=== PATIENT | female | born 1960 | race Asian ===

== ENCOUNTER 2018-03-30 09:09 | Inpatient (IN) | payer MEDICAID, OTHER ==
[~2018-03-30] VITALS: Ht 157.5 cm; Wt 750.2 kg
[2018-03-30 09:20] VITALS: BP 151/79
--- NOTE | 2018-03-30 09:25 | NUR ---
PT AMBULATES TO BED 6
--- NOTE | 2018-03-30 09:25 | NUR ---
informed er fower about patient status. no verbal order for antipyretic d/t patient actively vomitting.
--- NOTE | 2018-03-30 09:26 | NUR ---
58/F BIB SELF with c/o epigastric pain with n/v x since 0800 this am. Patient reports of vomitting 2 episodes but denies any diarrhea. RASHES L UPPER CHEST. AAOX4 WITH EVEN AND STEADY GAIT; LUNGS CLEAR BL; PT DENIES ANY SOB, OR COUGH AT THIS TIME; PATIENT STATES PAIN OF 10/10 AT THIS TIME. PATIENT POSITIONED FOR COMFORT; HOB ELEVATED; BEDRAILS UP X2; BED DOWN. ER MD MADE AWARE OF PT STATUS.
[2018-03-30] MEDS ORDERED: ACETAMINOPHEN EXTRA STRENGTH 500 MG TAB ONE (09:32)
[2018-03-30] MEDS ORDERED: NACL 0.9% 1,000 ML IV ONE (09:36)
[2018-03-30] MEDS ORDERED: NACL 0.9% 2,000 ML IV SCH (09:36)
--- NOTE | 2018-03-30 09:36 | NUR ---
Patient being evaluated by DR GREY at bedside.
[2018-03-30] MEDS ORDERED: KETOROLAC 30 MG/ML VIAL IVP ONE (09:40)
[2018-03-30] MEDS ORDERED: PIPERACILLIN/TAZOBACTAM 3.375 GM in DEXT 5% MINI-BAG PLUS 50 ML IV ONE (09:40)
[2018-03-30] MEDS ORDERED: MORPHINE SULFATE 2 MG/ML SYR IM ONE (09:40)
[2018-03-30] MEDS ORDERED: ONDANSETRON 4 MG/2 ML VIAL IVP ONE (09:40)
--- NOTE | 2018-03-30 09:46 | NUR ---
PT TAKEN TO CT VIA GURIVANNA ACCOMPANIED BY HAND SPRING REPAIRER.
[2018-03-30] MEDS ORDERED: PIPERACILLIN/TAZOBACTAM 3.375 GM VIAL IV ONE (09:57)
--- NOTE | 2018-03-30 10:25 | NUR ---
ULTRA SOUND IN PROGRESS GERIATRIC AIDE TO ATTEMPT ABG AT A LATER TIME
--- NOTE | 2018-03-30 10:30 | NUR ---
RT AT BEDSIDE FOR ABG
--- NOTE | 2018-03-30 10:30 | NUR ---
LAB AT BEDSIDE
--- NOTE | 2018-03-30 10:40 | NUR ---
DR CECILIA GREY REVIEWED ABG SAMPL REPORT PER SUSANA PLACED PATIENT ON SUPPLEMENTAL OXYGEN AT 2 LPM VIA NC
--- NOTE | 2018-03-30 10:47 | NUR ---
LAB AT BEDSIDE FOR BLOOD C/S
[2018-03-30 10:58] LABS: PROTHROMBIN TIME 11.2 secs (10.8-13.4)
[2018-03-30 11:04] LABS: BASOPHILS # (AUTO) 0.1 K/uL (0.00-0.22); BASOPHILS % (AUTO) 0.8 % (0.0-2.0); HEMATOCRIT 40.4 % (36-48); HEMOGLOBIN 13.5 g/dL (12.0-16.0); LYMPHOCYTES # (AUTO) 0.2 K/uL (2.5-16.5); LYMPHOCYTES % (AUTO) 2.2 % (20.5-51.1); MEAN CORPUSCULAR HEMOGLOBIN 29 pg (27-31); MEAN CORPUSCULAR HGB CONC 33 g/dL (33-37); MEAN CORPUSCULAR VOLUME 86.7 fL (80-94); MONOCYTES % (AUTO) 0.2 % (1.7-9.3); NEUTROPHILS # (AUTO) 9.2 K/uL (1.8-7.7); NEUTROPHILS % (AUTO) 96.8 % (42.2-75.2); PLATELET COUNT (AUTO) 193 K/uL (140-450); RED BLOOD CELL COUNT(AUTO) 4.66 MIL/uL (4.20-5.40); RED CELL DISTRIBUTION WIDTH 14.4 % (11.6-13.7); WHITE BLOOD COUNT (AUTO) 9.5 K/uL (4.8-10.8)
[2018-03-30 11:18] LABS: CARBON DIOXIDE 24.8 mmol/L (21-32); POTASSIUM 3.8 mmol/L (3.5-5.1)
[2018-03-30 11:19] LABS: ALBUMIN 3.5 g/dL (3.4-5.0); TOTAL BILIRUBIN 4.6 mg/dL (0.0-1.0)
[2018-03-30 11:49] LABS: AMYLASE 31 U/L (25-115); LIPASE 232 U/L (73-393)
[2018-03-30] MEDS ORDERED: metroNIDAZOLE 500 MG/NS PREMIX 100 ML IV ONE (12:00)
[2018-03-30 12:16] LABS: APPEARANCE,URINE SLIGHTLY HAZY (CLEAR); COLOR,URINE AMBER (YELLOW)
[2018-03-30 12:17] LABS: BILIRUBIN,URINE 2+ (NEGATIVE); BLOOD, URINE TRACE (NEGATIVE); LEUKOCYTE ESTERASE ,URINE NEGATIVE (NEGATIVE); NITRITE, URINE NEGATIVE (NEGATIVE); UGLUCOSE 3+ (NEGATIVE)
[2018-03-30 13:00] LABS: RBC,URINE 3-10 (FEW) /HPF (0-5); WBC,URINE 0-5 (RARE) /HPF (0-5)
[2018-03-30] MEDS ORDERED: ATEN25TA7 PO (14:06)
[2018-03-30] MEDS ORDERED: ATOR40TA PO ×2 (14:06)
[2018-03-30] MEDS ORDERED: METF500T2 PO (14:06)
[2018-03-30] MEDS: NACL 0.9% 1,000 ML IV SCH ×2 (14:18→20:59)
[2018-03-30] MEDS ORDERED: HYDROcodone/APAP 5/325 MG 1 TAB TAB PO PRN (14:20)
[2018-03-30] MEDS ORDERED: MORPHINE SULFATE 4 MG/ML SYR IVP PRN (14:20)
[2018-03-30] MEDS ORDERED: DEXTROSE 50% 50 ML SYR IVP PRN (14:20)
[2018-03-30] MEDS ORDERED: ONDANSETRON 4 MG/2 ML VIAL IVP PRN (14:20)
--- NOTE | 2018-03-30 14:21 | NUR ---
REPORTED TO JOE MCKNIGHT.
--- NOTE | 2018-03-30 14:32 | NUR ---
TOLD BY DR GREY THAT PT IS NOT STABLE ENOUGH FOR TRANSFER
--- NOTE | 2018-03-30 15:25 | NUR ---
PATIENT ADMITTED TO THE UNIT. PATIENT AWAKE, ALERT AND ORIENTED. NO S/S OF DISTRESS NOTED. NO C/O PAIN OR VOMITING AT THIS TIME. PATIENT PLACED ON TELE MONITORING. BED LOWERED WITH CALL LIGHT WITHIN REACH. WILL CONTINUE TO MONITOR
--- NOTE | 2018-03-30 15:28 | NUR ---
Patient will be admitted to care of DR PURDY. Admited to TELEE. Will go to [id number]. Belongings list completed. Report to TIM MCKNIGHT.
[2018-03-30] MEDS ORDERED: ATOR20TA40 PO (15:43)
[2018-03-30 15:49] VITALS: BP 108/53
[2018-03-30] MEDS: BLOOD GLUCOSE MONITORING 1 DEV DEV FS SCH ×2 (17:10→21:55)
--- NOTE | 2018-03-30 17:35 | NUR ---
PATIENT ASLEEP IN BED. NO S/S OF DISTRESS NOTED
[2018-03-30] MEDS: INSULIN LISPRO SLIDING SCALE 100 UNITS/ML VIAL SUBQ PRN ×2 (17:40→21:57)
--- NOTE | 2018-03-30 19:35 | NUR ---
PATIENT REPORT GIVEN AT BEDSIDE. PATIENT ENDORSED IN STABLE CONDITION
--- NOTE | 2018-03-30 19:50 | NUR ---
A/A/OX4.DENIES ANY DISCOMFORT @ THIS TIME.AFEBRILE.SEEN & EXAMINED BY ;ERCP PROCEDURE IN AM EXPLAINED.VERBALIZED UNDERSTANDING OF THE EXPLANATION GIVEN.
[2018-03-30 20:00] VITALS: BP 90/50
[2018-03-30] MEDS: PIPER/TAZO 3.375GM/D5W PREMIX 50 ML IV SCH (20:59)
[2018-03-30] MEDS ORDERED: PIPERACILLIN/TAZOBACTAM 2.25 GM in DEXTROSE 5% 50 ML IV SCH (21:00)
[2018-03-30] MEDS: metroNIDAZOLE 500 MG/NS PREMIX 100 ML IV SCH (21:49)
[2018-03-31] VITALS: BP 92/53
--- NOTE | 2018-03-31 00:01 | NUR ---
AFEBRILE.V/S S.DENIES ANY DISCOMFORT,
--- NOTE | 2018-03-31 03:30 | NUR ---
V/S S.AFEBRILE.DENIES ANY DISCOMFORT @ THIS TIME.NO ACUTE DISTRESS.
[2018-03-31] MEDS: PIPER/TAZO 3.375GM/D5W PREMIX 50 ML IV SCH ×2 (04:26→15:29)
[2018-03-31] MEDS: metroNIDAZOLE 500 MG/NS PREMIX 100 ML IV SCH ×2 (05:32→16:20)
[2018-03-31 06:41] VITALS: BP 98/57
--- NOTE | 2018-03-31 06:50 | NUR ---
ENDORSED IN NO ACUTE DISTRESS.SAFETY MAINTAINED.IVF NS @ 100ML/HR INFUSING WELL.NO S/S OF HYPO/ HYPERGLYCEMIA NOTED.KEPT NPO POST 0600;VERBALIZED UNDERSTANDING OF THE INSTRUCTION GIVEN.
--- NOTE | 2018-03-31 07:10 | NUR ---
RECEIVED PATIENT REPORT AT BEDSIDE. PATIENT AWAKE, ALERT AND ORIENTED. NO S/S OF DISTRESS NOTED. NO C/O PAIN OR VOMITING AT THIS TIME. PATIENT PLACED ON TELE MONITORING. BED LOWERED WITH CALL LIGHT WITHIN REACH. WILL CONTINUE TO MONITOR
[2018-03-31 07:35] LABS: BASOPHILS % (AUTO) 0.4 % (0.0-2.0); EOSINOPHILS # (AUTO) 0.1 K/uL (0-0.4); EOSINOPHILS % (AUTO) 1.8 % (0.0-4.0); HEMATOCRIT 34.4 % (36-48); HEMOGLOBIN 11.6 g/dL (12.0-16.0); LYMPHOCYTES # (AUTO) 0.9 K/uL (2.5-16.5); LYMPHOCYTES % (AUTO) 12.2 % (20.5-51.1); MEAN CORPUSCULAR HEMOGLOBIN 29 pg (27-31); MEAN CORPUSCULAR HGB CONC 34 g/dL (33-37); MONOCYTES # (AUTO) 0.6 K/uL (0.8-1.0); MONOCYTES % (AUTO) 8.2 % (1.7-9.3); NEUTROPHILS # (AUTO) 5.5 K/uL (1.8-7.7); NEUTROPHILS % (AUTO) 77.4 % (42.2-75.2); PLATELET COUNT (AUTO) 152 K/uL (140-450); RED BLOOD CELL COUNT(AUTO) 3.95 MIL/uL (4.20-5.40); RED CELL DISTRIBUTION WIDTH 14.6 % (11.6-13.7); WHITE BLOOD COUNT (AUTO) 7.1 K/uL (4.8-10.8)
[2018-03-31] MEDS ORDERED: COMMUNICATION ORDER MC ONE (07:40)
[2018-03-31 08:00] VITALS: BP 107/62
[2018-03-31 08:19] LABS: ALBUMIN 2.8 g/dL (3.4-5.0); ANION GAP 11.6 (8-16); CARBON DIOXIDE 26.3 mmol/L (21-32); CREATININE 1.6 mg/dL (0.6-1.3); POTASSIUM 3.9 mmol/L (3.5-5.1)
[2018-03-31] MEDS: BLOOD GLUCOSE MONITORING 1 DEV DEV FS SCH ×3 (08:27→17:16)
--- NOTE | 2018-03-31 08:49 | NUR ---
PATIENT HAS BEEN SCREENED AND CATEGORIZED HIGH NUTRITION RISK. PATIENT WILL BE SEEN WITHIN 1-2 DAYS OF ADMISSION. 03/31/18 04/01/[address]
[2018-03-31] MEDS ORDERED: ATENOLOL 25 MG TAB PO SCH (09:00)
[2018-03-31] MEDS ORDERED: PANTOPRAZOLE 40 MG INJ VIAL IVP SCH (09:00)
[2018-03-31] MEDS ORDERED: ENOXAPARIN 40 MG/0.4 ML SYR SUBQ SCH (09:00)
[2018-03-31] MEDS: NACL 0.9% 1,000 ML IV SCH (10:18)
[2018-03-31] MEDS ORDERED: [UNRECOGNIZED DRUG - OTHER] TP SCH (11:30)
--- NOTE | 2018-03-31 11:36 | NUR ---
SPOKE WITH DR. PURDY REGARDING HIS ORDER TO TRANSFER PT TO CONTRACTED FACILITY, DR. PURDY STATED THAT HE SPOKE WITH PT'S DOMESTIC VIOLENCE COUNSELOR AND THAT THERE IS NO BED AVAILABLE YET. DR. PURDY STATED TO GO AHEAD WITH THE PLANNED ERCP SCHEDULED AT 1245 TODAY IF WE DON'T GET A CALL FROM THE INSURANCE AROUND 12 NOON. TIM MCKNIGHT ASSIGNED NOTIFIED. Addendum: 03/31/18 at 1159 by Sharona Gracia RN LEXX (#[id number]) FROM SURGERY ALSO NOTIFIED.
[2018-03-31] MEDS: LACTATED RINGERS 1,000 ML IV SCH ×2 (11:40→12:50)
[2018-03-31 12:00] VITALS: BP 110/63
--- NOTE | 2018-03-31 12:38 | NUR ---
PATIENT LEFT THE UNIT FOR ERCP
[2018-03-31] MEDS ORDERED: MIDAZOLAM 2 MG/2 ML VIAL ONE (13:00)
[2018-03-31] MEDS ORDERED: fentaNYL 0.05 MG/ML VIAL ONE (13:00)
[2018-03-31] MEDS ORDERED: PROPOFOL 200 MG/20 ML VIAL IV ONE (13:08)
--- NOTE | 2018-03-31 14:27 | NUR ---
Patient will be transfer to [facility] when bed available. faxed review to Latonia at [place] [phone] her phone number is [phone]. Per Latonia when she found a bed at [facility], she will contact the [facility].
--- NOTE | 2018-03-31 15:07 | NUR ---
03/31/18 RD INITIAL ASSESSMENT COMPLETED PLEASE REFER TO NUTRITION ASSESSMENT UNDER CARE ACTIVITY FOR ESTIMATED NUTRITIONAL NEEDS. 1. WHEN/IF PT MEDICALLY STABLE TO BEGIN NUTRITION, CONSIDER ADVANCE DIET TOLERATED TO BLAND DIET 2. FOLLOW-UP NUTRITION EDUCATION FOR GALLSTONES/CHOLECYSTECTOMY, WEIGHT MANAGEMENT 3. RD TO FOLLOW-UP 3-5 DAYS, MODERATE RISK BALJINDER GODINEZ RD
[2018-03-31 15:20] VITALS: BP 118/64
--- NOTE | 2018-03-31 15:20 | NUR ---
PATIENT BACK IN THE UNIT. PATIENT IS DROWSY BUT AROUSABLE. NO S/S OF DISTRESS. TEMP 97.2 BP: 118/64 HR: 69 O2 SAT 94% ON ROOM AIR. NO C/O PAIN AT THIS TIME. WILL CONTINUE TO MONITOR
[2018-03-31] MEDS ORDERED: AMOX-1000 PO (15:45)
[2018-03-31] MEDS: INSULIN LISPRO SLIDING SCALE 100 UNITS/ML VIAL SUBQ PRN (18:08)
--- NOTE | 2018-03-31 18:30 | NUR ---
PATIENT TOLERATED FULL LIQUID DIET WELL. PATIENT AMBULATED AND VOIDED NO S/S OF DISTRESS NOTED
--- NOTE | 2018-03-31 19:00 | NUR ---
PATIENT DISCHARGED TO HOME. DISCHARGE INSTRUCTIONS AND DISCHARGE PRESCRIPTIONS GIVEN. PATIENT AND PATIENT'S DAUGHTER VERBALIZED UNDERSTANDING. IV LINES DISCONTINUED, TELE LEADS TAKEN OFF. PATIENT LEFT WITH ALL HER BELONGINGS AND DISCHARGE PAPERS. PATIENT LEFT IN STABLE CONDITION
== END 2018-03-31 19:00 | disposition home or self-care (01) | DRG 871 ==
LOC: MED 09:09 → MTU 14:26
PROVIDERS: ADMIT Internal Medicine; ATTEND Internal Medicine
PROC: 0F798ZZ Dilation of Common Bile Duct, Via Natural or Artificial Opening Endoscopic (ICD-10-PCS; principal; 2018-03-31 12:45)
DX: A41.9 Sepsis, unspecified organism (principal); J96.20 Acute and chronic respiratory failure, unspecified whether with hypoxia or hypercapnia; K80.33 Calculus of bile duct with acute cholangitis with obstruction; E11.22 Type 2 diabetes mellitus with diabetic chronic kidney disease; E78.5 Hyperlipidemia, unspecified; E66.9 Obesity, unspecified; Z68.30 Body mass index [BMI] 30.0-30.9, adult; K29.60 Other gastritis without bleeding; Z82.49 Family history of ischemic heart disease and other diseases of the circulatory system; D64.9 Anemia, unspecified; N18.9 Chronic kidney disease, unspecified; Z98.891 History of uterine scar from previous surgery; Z90.710 Acquired absence of both cervix and uterus
CPT/HCPCS: 36415; 36600; 71045; 74330; 76705; 80053; 81001; 82150; 82550; 82553; 82803; 82948; 83605; 83690; 83874; 83880; 84484; 85025; 85610; 85730; 86677; 87040; 87081; 87086; 93005; C1769; C9113; J1650; J1815; J1885; J2250; J2270; J2405; J2543; J2704; J3010; J3490; J7030; J7120; Q0092

== ENCOUNTER 2018-04-01 04:37 | Inpatient (IN) | payer OTHER ==
[~2018-04-01] VITALS: Ht 157.5 cm; Wt 76.2 kg
[~2018-04-01 04:37] MED LIST: AMOX-1000 PO; ATOR20TA40 PO; METF500T2 PO
--- NOTE | 2018-04-01 04:40 | NUR ---
Patient ambulated to bed 6 with family. RN evaluating patient at bedside
[2018-04-01 04:43] VITALS: BP 145/75
--- NOTE | 2018-04-01 04:50 | NUR ---
C/O CP/EPIGASTRIC PAIN/N/V X 1 HOUR. PT RECENTLY HOSPITALIZED HERE FOR GALLSTONES. AAOX4 WITH EVEN AND STEADY GAIT; PATIENT STATES PAIN OF 10/10; VSS; PATIENT POSITIONED FOR COMFORT; HOB ELEVATED; BEDRAILS UP X2; BED DOWN. ER MD MADE AWARE OF PT STATUS.
--- NOTE | 2018-04-01 04:51 | NUR ---
Dr. White evaluating patient at bedside.
[2018-04-01] MEDS ORDERED: ONDANSETRON 4 MG/2 ML VIAL IVP ONE (04:55)
[2018-04-01] MEDS ORDERED: NACL 0.9% 1,000 ML IV ONE (04:55)
[2018-04-01] MEDS ORDERED: MORPHINE SULFATE 4 MG/ML SYR IVP ONE (04:55)
[2018-04-01 05:37] LABS: BASOPHILS % (AUTO) 0.1 % (0.0-2.0); EOSINOPHILS % (AUTO) 0.4 % (0.0-4.0); HEMATOCRIT 38.2 % (36-48); HEMOGLOBIN 12.8 g/dL (12.0-16.0); LYMPHOCYTES # (AUTO) 0.7 K/uL (2.5-16.5); LYMPHOCYTES % (AUTO) 6.7 % (20.5-51.1); MEAN CORPUSCULAR HEMOGLOBIN 29 pg (27-31); MEAN CORPUSCULAR HGB CONC 34 g/dL (33-37); MEAN CORPUSCULAR VOLUME 86.6 fL (80-94); MONOCYTES # (AUTO) 0.6 K/uL (0.8-1.0); MONOCYTES % (AUTO) 6.2 % (1.7-9.3); NEUTROPHILS % (AUTO) 86.6 % (42.2-75.2); PLATELET COUNT (AUTO) 189 K/uL (140-450); RED CELL DISTRIBUTION WIDTH 14.6 % (11.6-13.7); WHITE BLOOD COUNT (AUTO) 10.3 K/uL (4.8-10.8)
[2018-04-01 05:46] LABS: CARBON DIOXIDE 22.7 mmol/L (21-32); CREATININE 1.4 mg/dL (0.6-1.3); POTASSIUM 3.7 mmol/L (3.5-5.1)
--- NOTE | 2018-04-01 06:12 | NUR ---
URINE SENT TO LAB
[2018-04-01 06:18] LABS: APPEARANCE,URINE CLEAR (CLEAR); BILIRUBIN,URINE 1+ (NEGATIVE); BLOOD, URINE TRACE-I (NEGATIVE); LEUKOCYTE ESTERASE ,URINE NEGATIVE (NEGATIVE); NITRITE, URINE NEGATIVE (NEGATIVE); UGLUCOSE NEGATIVE (NEGATIVE)
[2018-04-01 06:19] LABS: COLOR,URINE ORANGE (YELLOW)
[2018-04-01 06:23] LABS: RBC,URINE 0-5 (RARE) /HPF (0-5); WBC,URINE 0-5 (RARE) /HPF (0-5)
[2018-04-01] MEDS ORDERED: hePARIN / DEXT 5% PREMIX 250 ML IV ONE (06:45)
[2018-04-01] MEDS ORDERED: HEPARIN PER PHARMACY MC PRN (06:45)
--- NOTE | 2018-04-01 06:49 | NUR ---
EMT CATHY CORTES MD AT [facility] FOR RECTAL EXAM
--- NOTE | 2018-04-01 07:03 | NUR ---
RECTAL EXAM POSITIVE OCCULT BLOOD DONE BY DR. IRBY
--- NOTE | 2018-04-01 07:15 | NUR ---
Received report from dominga [facility]. Transfer of care at this time
--- NOTE | 2018-04-01 07:45 | NUR ---
PT. TAKEN VIA GURNEY BY SAWDUST MACHINE OPERATOR TO GET VQ SCAN DONE. PT. AAOX4, RR EVEN AND UNLABORED.
--- NOTE | 2018-04-01 09:03 | NUR ---
0900 CALLED NUCLEAR IMAGING FOR UPDATE OF PT STATUS, TECH STATES IT WILL BE 45 MORE MINUTES.
[2018-04-01] MEDS ORDERED: MORPHINE SULFATE 4 MG/ML SYR IVP PRN (09:40)
--- NOTE | 2018-04-01 09:45 | NUR ---
PT. BACK FROM VQ SCAN . RR EVEN AND UNLABORED, PT. AAOX4. WILL CONTINUE TO MONITOR.
[2018-04-01] MEDS ORDERED: PANTOPRAZOLE 40 MG INJ VIAL IVP SCH (10:00)
[2018-04-01] MEDS ORDERED: MORPHINE SULFATE 2 MG/ML SYR IVP ONE (10:40)
--- NOTE | 2018-04-01 10:50 | NUR ---
PT. RESTING COMFORTABLY IN BED, RR EVEN AND UNLABORED, VSS. DAUGHTER AT BEDSIDE. WILL CONTINUE TO MONITOR.
[2018-04-01] MEDS ORDERED: NACL 0.9% 1,000 ML IV SCH ×2 (11:07→11:35)
[2018-04-01] MEDS ORDERED: HYDROcodone/APAP 7.5/325 MG 1 TAB PO PRN (11:10)
[2018-04-01] MEDS ORDERED: ACETAMINOPHEN 325 MG TAB PO PRN (11:10)
[2018-04-01] MEDS ORDERED: ONDANSETRON 4 MG/2 ML VIAL IVP PRN (11:10)
--- NOTE | 2018-04-01 11:40 | NUR ---
PT ADMITTED TO TELE. ARRIVED TO UNIT VIA GURNEY. AMBULATED TO BED. BEDSIDE REPORT GIVEN BY MAGNETIC HEALER DWAYNE. PT IS AAOX4. INTRODUCED SELF AND UPDATED BOARD. VS: TEMP 98.5, P 73, BP 131/64, RR 18, O2 SAT 95% ON O2 NC 2L/MIN. NO SOB. NO COUGH. PT DENIES CHEST PAIN. PT ABLE TO STATE PMH. STATES HAS HX OF HTN AND DM. SKIN INTACT. IV TO L AC 20G INTACT. TELE MONITOR APPLIED. MRSA SWAB DONE. NO COMPLAINTS AT THIS TIME. PT'S AND DAUGHTER AT BEDSIDE. ORIENTED PT ON USE OF CALL LIGHT. VERBALIZED UNDERSTANDING. NON SKID SOCKS ON. BED IN LOW POSITION, WHEELS LOCKED. WILL CONTINUE TO MONITOR.
--- NOTE | 2018-04-01 11:40 | NUR ---
Patient will be admitted to care of DR. PEREZ. Admited to TELEMETRY . Will go to room 112B . Belongings list completed. Report to ROXANNA MARTINI .
[2018-04-01 12:23] VITALS: BP 131/64
[2018-04-01 13:09] LABS: BARBITURATE, URINE NEG. ng/ml (NEG <=200); BENZODIAZEPINE, URINE POS. ng/mL (NEG <=200); CANNABINOID, URINE NEG. ng/mL (NEG <=50); COCAINE, URINE NEG. ng/mL (NEG <=300); OPIATE, URINE NEG. ng/mL (NEG <=2000); PHENCYCLIDINE SCREEN,URINE NEG. ng/mL (NEG <=25)
[2018-04-01 13:25] LABS: PROTHROMBIN TIME 10.3 secs (10.8-13.4)
[2018-04-01 13:39] LABS: CHOL/HDL RATIO 8.5 (1-4.5); FREE T4 (FREE THYROXINE) 1.32 ng/dL (0.76-1.46); MAGNESIUM 1.7 mg/dL (1.8-2.4); PHOSPHORUS 3.1 mg/dL (2.5-4.9); THYROID STIMULATING HORMONE 0.35 uIU/mL (0.34-3.74)
[2018-04-01] MEDS ORDERED: DEXT 5% / NACL 0.45% 1,000 ML IV SCH (14:25)
--- NOTE | 2018-04-01 14:41 | NUR ---
Coffee Brewer Note: I received a call from director case management Latonia from [facility] , she stated she is in process of arranging patient's transfer to contracted hospital, she requested MD's order for transfer to be faxed to her, fax number, , I notified of this. put order to transfer in [facility], I faxed order to Latonia.
--- NOTE | 2018-04-01 14:56 | NUR ---
Property Handler Note: Per case investigator Latonia from [facility] , she will arrange transportation for patient to go to contracted hospital, she reported she provide our nurse with name of accepting hospital, room number, and phone number, charge nurse Antonieta made aware.
[2018-04-01 16:00] VITALS: BP 106/64
--- NOTE | 2018-04-01 16:09 | NUR ---
CHECKED ON PT IN ROOM. PT STATED ABD PAIN IS BETTER NOW. PT REQUESTED ICE CHIPS. GAVE CUP OF ICE CHIPS. MADE PT AWARE OF PLAN FOR TRANSFER. PT VERBALIZED UNDERSTANDING. NO SIGNS OF DISTRESS. CALL LIGHT WITHIN REACH. WILL CONTINUE TO MONITOR.
[2018-04-01] MEDS ORDERED: INSULIN LISPRO SLIDING SCALE 100 UNITS/ML VIAL SUBQ PRN (16:35)
[2018-04-01] MEDS ORDERED: DEXTROSE 50% 50 ML SYR IVP PRN (16:35)
[2018-04-01] MEDS ORDERED: metFORMIN 500 MG TAB PO SCH (17:00)
[2018-04-01] MEDS ORDERED: MAGNESIUM OXIDE 400 MG TAB PO SCH (17:00)
--- NOTE | 2018-04-01 17:54 | NUR ---
CALLED [facility] AND GAVE REPORT TO NILESH MCKNIGHT. LEFT CALL BACK NUMBER AND HOSPITAL CHIEF EXECUTIVE OFFICER TIME 6:30PM.
--- NOTE | 2018-04-01 18:30 | NUR ---
PT D/C FOR TRANSFER TO [facility]. REPORT GIVEN TO TRANSPORTER. PT SIGNED D/C FORMS, INSTRUCTIONS. REMOVED ID BAND AND TELE MONITOR. PT'S DAUGHTER AND AT BEDSIDE. PT LEFT WITH ALL PERSONAL BELONGINGS. LEFT UNIT VIA GURNEY ACCOMPANIED BY TRANSPORTER AND FAMILY. LEFT IN STABLE CONDITION.
[2018-04-01] MEDS ORDERED: BLOOD GLUCOSE MONITORING 1 DEV DEV FS SCH (21:00)
[2018-04-01] MEDS ORDERED: DOCUSATE SODIUM 100 MG GELCAP PO SCH (21:00)
--- NOTE | 2018-04-02 07:58 | NUR ---
RETRO ER REPORT, H&P AND DISCHARGE SUMMARY FAXED TO [facility] [phone]
[2018-04-02] MEDS ORDERED: ATORVASTATIN 20 MG TAB PO SCH (09:00)
[2018-04-02] MEDS ORDERED: PANTOPRAZOLE 40 MG INJ VIAL IVP SCH (09:00)
== END 2018-04-01 18:30 | disposition short-term general hospital (02) | DRG 444 ==
LOC: MED 04:37 → MTU 11:09
PROVIDERS: ADMIT General Practice; ATTEND General Practice
DX: K80.50 Calculus of bile duct without cholangitis or cholecystitis without obstruction (principal); K85.90 Acute pancreatitis without necrosis or infection, unspecified; J96.01 Acute respiratory failure with hypoxia; N17.0 Acute kidney failure with tubular necrosis; N39.0 Urinary tract infection, site not specified; D68.59 Other primary thrombophilia; E44.0 Moderate protein-calorie malnutrition; I10 Essential (primary) hypertension; E86.0 Dehydration; E11.69 Type 2 diabetes mellitus with other specified complication; E83.42 Hypomagnesemia; Z79.84 Long term (current) use of oral hypoglycemic drugs; Z90.710 Acquired absence of both cervix and uterus; Z68.30 Body mass index [BMI] 30.0-30.9, adult
CPT/HCPCS: 36415; 71045; 76705; 78582; 80053; 80305; 81001; 82150; 83036; 83615; 83690; 83735; 83880; 84100; 84439; 84443; 84484; 85025; 85379; 85610; 85730; 87040; 87081; 93005; 96361; 96374; 96375; 96376; 99285; J2270; J2405; Q0092